=== PATIENT | male | born 1950 | race Caucasian/White ===

== ENCOUNTER 2019-10-26 12:27 | Inpatient (IN) | payer BC, MEDICARE ==
[2019-10-26] MEDS ORDERED: Iopamidol-370 76% 500 ML 1 ML ONE (12:52)
--- NOTE | 2019-10-26 13:56 | PDOC.FPRHP ---
- History of Present Illness Chief Complaint: abd pain History of Present Illness: Pt is a 69yo M with no PMH presenting as a direct admission from [facility] for cc of abd pain in RUQ and constipation, with findings of metastatic cancer on imaging. This has been present x2 wks. He has tried dulcolax with only mild improvement. Pain continued and worsens with eating and movement, improves with being still. Pain described as sharp/stabbing, varying from 3/10 to 10/10 at its worst. Denies diarrhea, nausea, vomiting, hematochezia, and melena. Denies colonoscopy in the past. He has no PCP. He has never had a colonoscopy. ED Course: He was seen at [facility]. They did an US that showed spots on his liver. [facility] in the [facility] colon, mets in the liver, and LAD in the floyd hepatis. He has an AST: 57, ALT: 79, Alk Phos: 148, GGT: 274. - Allergies/Adverse Reactions Allergies Allergy/AdvReac Type Severity Reaction Status Date / Time No Known Allergies Allergy Verified 06/12/14 13:01 - Home Medications Medication Instructions Recorded Confirmed Type No Known 10/26/19 10/26/19 History - History PMHx: Asthma PSHx: retinal detachment repair R eye, laser surgery L eye FHx: Father-colon cancer (dx at 88yo), Mother passed from Lymphoma at age 86yo Social: denies tobacco use, reports occasional alcohol use- 3-4 beers every 2-3 days, denies drug use. Lives at home with of 13yr. PCP: none - Review of Systems General: reports: fatigue. denies: fever/chills, weight/appetite/sleep changes Eyes: denies: vision changes ENT: denies: nasal congestion, rhinorrhea Respiratory: denies: cough, congestion, shortness of breath Cardiovascular: denies: chest pain, edema Gastrointestinal: reports: constipation, abdominal pain. denies: nausea, vomiting, diarrhea, GI bleeding Genitourinary: denies: polyuria Skin: denies: rashes, lesions Musculoskeletal: denies: pain, tenderness Neurological: denies: numbness, weakness Psychological: denies: depression - Vital signs T 97.8F, P 58, R18, O296% on RA, BP 167/94 Wt: 102.965 kg - Physical Exam Constitutional: NAD, awake, alert and oriented HEENT: normocephalic and atraumatic, PERRLA, conjunctiva clear, normal nasal mucosa, MMM, oropharynx clear, good dention Neck: supple, no LAD Heart: RRR, normal S1/S2, no murmurs/rubs/gallops, pulses present, no edema Lungs: CTAB, no respiratory distress, good air movement, no rales/rhonchi, no wheezing, no retractions Abdomen: soft, bowel sounds present -Abdomen: Tender to palpitation on the right abdomen. Musculoskeletal: normal structure, normal tone Neurological: CN II-XII intact, normal sensation Skin: no rash/lesions, good turgor Heme/Lymphatic: no unusual bruising or bleeding, no purpura, no petechia Psychiatric: normal mood and affect, intact recent and remote memory FMR H&P: A/P - Problem List (1) Colorectal cancer, stage IV Current Visit: Yes Status: Acute Code(s): C19 - MALIGNANT NEOPLASM OF RECTOSIGMOID JUNCTION (2) Metastasis Current Visit: Yes Status: Acute Code(s): C79.9 - SECONDARY MALIGNANT NEOPLASM OF UNSPECIFIED SITE (3) Elevated alkaline phosphatase level Current Visit: Yes Status: Acute Code(s): R74.8 - ABNORMAL LEVELS OF OTHER SERUM ENZYMES (4) Elevated serum GGT level Current Visit: Yes Status: Acute Code(s): R74.8 - ABNORMAL LEVELS OF OTHER SERUM ENZYMES (5) Abdominal pain Current Visit: Yes Status: Acute Code(s): R10.9 - UNSPECIFIED ABDOMINAL PAIN (6) Asthma Current Visit: Yes Status: Acute Code(s): J45.909 - UNSPECIFIED ASTHMA, UNCOMPLICATED - Plan Pt is a 69yo M with no PMH presenting as a direct admission from [facility] for cc of abd pain in RUQ and constipation, with findings of metastatic cancer on imaging. 1. CRC, Stage IV Abd pain for 2 wks * No colonoscopy * FMH colon cancer in 80s in father * US: MUltiple hypoechoic hepatic lesions, gallbladder polyp, Fatty infection of the liver and hepatomegaly * CT Abd: Moderate wall thickening of the ascending colon, pericolonic mesenteric fat infiltation of cecum, LAD of the floyd hepatis, 3.7 x 3.8 ascending colon mass. * CT Chest ordered * GI consulted, appreciate recs. * Golytely this evening * Colonoscopy tomorrow 2. Transaminitis/Elevated Alk Phos & GGT ALT: 79, AST: 57, Alk Phos: 148, GGT: 274 * Daily CMPs 3. Abdominal pain RUQ with radiation to RLQ * Improved with liquid diet * Will keep him on a liquid diet Code Status: Full Diet: Clear Liquid > NPO @ midnight Activity: Ad Ching IVF: SL DVT PPx: Lovenox PCP: CC Dispo:Admit to medical inpt for workup of ascending colon mass with liver mets. LOS > 48H. FMR H&P: Upper Level - Plan Date/Time: 10/26/19 1356 I, Maria Luz Combs DO, have evaluated this patient and agree with findings/plan as outlined by internet marketing assistant resident. Pertinent changes/additions are listed here. Pt is a 69 yo F with no pertinent PMH presenting from [facility] for concern for new metastatic disease on imaging. He presented there with c/o abd pain and constipation x2wks worsened by eating and moving, worsening with limited ability to tolerate meals other than broths. Denies fever, hematochezia , melena, n/v/d, weight loss. No prior colonoscopy. +FHx of lymphoma and colon cancer in parents. VS: T 97.8F, P 58, R18, O296% on RA, BP 167/94 PE: Gen: NAD HEENT: Moist MM, no LAD Heart: RRR, no murmurs or extra sounds. Distal pulses 2+ Lungs: CTAB, no wheezing. No increased work of breathing Abd: soft, tenderness in RUQ, negative murphys sign, BS+, no masses or hernias Ext: no cyanosis or edema Skin: no rashes Psych: AOx3 Pertinent Labs/Imaging: Alk phos: 148 ALT 79 AST 57 Tbili 1.1 GGT 274 RUQ US: Multiple hypoechoic hepatic lesions Ctabd/pelvis: Likely ascending colon mass with diffuse abdominal adenopathy and pora hepatis [id number] adenopathy and likely liver metastatic disease A/P: New Suspected Metastatic Colorectal Cancer: -consulted GI who recommends CT chest to further evaluate and morning colonoscopy. -clear liquid diet. -prn senna and dulcolax -plan to consult onc once tissue diagnosis is established Dispo: stable, admit inpatient, LOS likely> 48. DVT PPx: Lovenox GI PPx: none Addendum - Attending - Attending Attestation Date/Time: 10/26/19 8223 I personally evaluated the patient and discussed the management with Dr. Spicer/ Lauryn. I agree with the History, Examination, Assessment and Plan documented above with any addition or exceptions noted below. Patient here with 2 weeks of abdominal pain with associated constipation. He otherwise denies complaints. [facility] scan showed ascending colon thickening and fat stranding with findings concerning for liver metastatic disease. He has never had a colonoscopy, and reports his father had colorectal cancer age >80. Patient will be admitted for further evaluation. GI consult with plans for colonoscopy tomorrow and possible surgical consult after that time. Will need Onc after tissue diagnosis. Will check CT chest for staging.
[2019-10-26] MEDS ORDERED: Prevnar 13-Val Conj/PF 0.5 ML SYRINGE IM ONE (14:15)
[2019-10-26 14:39] VITALS: BMI 30.7
[2019-10-26] MEDS ORDERED: Acetaminophen 325 MG TAB PO PRN (15:18)
[2019-10-26] MEDS ORDERED: Senokot S 8.6-50 MG TAB PO PRN (15:18)
[2019-10-26] MEDS ORDERED: Ondansetron ODT 4 MG TAB PO PRN (15:18)
[2019-10-26] MEDS ORDERED: Bisacodyl 5 MG TAB PO PRN (15:18)
--- NOTE | 2019-10-26 18:19 | CT ---
CT OF THE CHEST WITH IV CONTRAST INDICATION: History of metastatic colon cancer COMPARISON: CT the abdomen and pelvis performed at [facility] in [place], [place] on October 26, 2019. FINDINGS: CHEST: Lungs: There is a 4.5 mm triangular-shaped, subpleural nodule in the lateral right middle lobe on negra ge 30 of series 3. An additional small triangular subpleural 2 mm nodule is seen within the right middle lobe on image 40 of series 3. No additional pulmonary nodule is identified. There is subsegmen neeraj volume loss involving both lower lobes. Pleural space: No effusion. Mediastinum: No pathologically enlarged lymph nodes are evident. Upper abdomen:Hepatic metastatic lesions with mild fatty infiltration as seen on the comparison CT ex amination. The largest lesion is in segment 6 measuring 4 cm. There is additional 4.3 cm lesion within the peripheral right hepatic lobe tip. There is extensive adenopathy within the portal caval a nd periportal region. Osseous structures: No acute osseous abnormality. No destructive osteolytic or osteoblastic lesion i s identified. There is scattered degenerative and osteoarthritic changes. Soft tissues:There is a partially visualized 2.1 cm subcutaneous hypodense lesion on image 23 of seri es 2 overlying the right latissimus dorsi. IMPRESSION: 1. Small peripheral subpleural triangular opacities within the lateral right middle lobe most suspici ous for small intrapulmonary lymph nodes. Metastatic disease is felt to be less likely. As a conservative measure a follow-up CT of the thorax in 4-6 weeks is recommended to document stability. 2. Hepatic metastatic disease with extensive upper abdominal lymphadenopathy. 3. Subcutaneous hypodense cystic lesion involving the skin surface of the right upper torso, adjacent to the right latissimus dorsi. This may reflect a prominent sebaceous cyst. Recommend correlation with clinical exam. Malignant skin lesion cannot be entirely excluded.
[2019-10-26] MEDS ORDERED: GoLYTELY 4,000 ml Bottle PO SCH (19:00)
--- NOTE | 2019-10-27 06:05 | PDOC.FM ---
- Subjective Subjective: He says he is still having a little pain with movement but he feels that it is tolerable and he will ask for pain meds when he needs them. He had chicken broth for dinner and tolerated it well. He says he took the Golytle and he has had a little brown stool and took more this morning to finish cleaning out in anticipation for the scope today. - Objective MAR Reviewed: Yes Vital Signs & Weight: Vital Signs (12 hours) Temp Pulse Resp BP BP Pulse Ox 10/27/19 04:00 98.2 F 63 18 134/76 94 L 10/27/19 00:00 97.9 F 57 L 18 137/77 96 10/26/19 20:28 98.2 F 60 18 146/79 H 96 10/26/19 20:00 96 Weight Weight 102.965 kg Result Diagrams: 10/27/19 06:30 10/27/19 06:30 Phys Exam - Physical Examination Constitutional: NAD HEENT: PERRLA, moist MMs, sclera anicteric Neck: no nodes, supple Respiratory: no wheezing, no rales, no rhonchi, clear to auscultation bilateral Cardiovascular: RRR, no significant murmur, no rub Gastrointestinal: soft, positive bowel sounds Tender to palptiation over the right side Musculoskeletal: no edema, pulses present Neurological: moves all 4 limbs Lymphatic: no nodes Psychiatric: normal affect Skin: no rash, normal turgor Dx/Plan (1) Colorectal cancer, stage IV Code(s): C19 - MALIGNANT NEOPLASM OF RECTOSIGMOID JUNCTION Status: Acute (2) Metastasis Code(s): C79.9 - SECONDARY MALIGNANT NEOPLASM OF UNSPECIFIED SITE Status: Acute (3) Elevated alkaline phosphatase level Code(s): R74.8 - ABNORMAL LEVELS OF OTHER SERUM ENZYMES Status: Acute (4) Elevated serum GGT level Code(s): R74.8 - ABNORMAL LEVELS OF OTHER SERUM ENZYMES Status: Acute (5) Abdominal pain Code(s): R10.9 - UNSPECIFIED ABDOMINAL PAIN Status: Acute (6) Asthma Code(s): J45.909 - UNSPECIFIED ASTHMA, UNCOMPLICATED Status: Acute - Plan Plan: Pt is a 69yo M with no PMH presenting as a direct admission from [facility] for cc of abd pain in RUQ and constipation, with findings of metastatic cancer on imaging. 1. CRC, Stage IV Abd pain for 2 wks * No colonoscopy * FMH colon cancer in 80s in father * US: Multiple hypoechoic hepatic lesions, gallbladder polyp, Fatty infection of the liver and hepatomegaly * CT Abd: Moderate wall thickening of the ascending colon, pericolonic mesenteric fat infiltation of cecum, LAD of the floyd hepatis, 3.7 x 3.8 ascending colon mass. * CT Chest: Right middle lobe lateral LAD, hepatic mets with LAD, subQ cyst with R latissmus dorsi- sebaceous vs met * Recommend repeat in 4-6 wks * GI consulted, appreciate recs. * Golytely- last night * Colonoscopy today * CEA: 5.64- Elevated 2. Transaminitis/Elevated Alk Phos & GGT ALT: 79 > 74, AST: 57 > 40, Alk Phos: 148 > 187, GGT: 274 * Daily CMPs 3. Abdominal pain RUQ with radiation to RLQ * Improved with liquid diet * Will keep him on a liquid diet Code Status: Full Diet: Clear Liquid > NPO @ midnight Activity: Ad Ching IVF: SL DVT PPx: Lovenox PCP: CC Dispo:Medical inpt for workup of mass with colon mets, LOS > 48H. Will have scope today. Will await GI recs. Addendum - Attending - Attending Attestation Date/Time: 10/27/19 1005 I personally evaluated the patient and discussed the management with [Dannielle] I agree with the History, Examination, Assessment and Plan documented above with any addition or exceptions noted below.
[2019-10-27 07:15] LABS: #Eosinphils 0.8 thou/uL (0.0-0.7); #Lymphocytes 1.3 thou/uL (1.20-3.40); #Monocytes 0.7 thou/uL (0.11-0.59); #Neutrophils 5.7 thou/uL (1.40-6.50); %Basophils 0.2 % (0.0-1.0); %Eosinophils 9.9 % (0.0-10.0); %Lymphocytes 15.3 % (21.0-51.0); %Monocytes 7.9 % (0.0-10.0); %Neutrophils 66.7 % (42.0-75.0); Hemoglobin 15.6 g/dL (14.0-18.0); Mean Corpuscular HGB CONC 33.3 g/dL (32.0-36.0); Mean Corpuscular Hemoglobin 30.9 pg (27.0-31.0); Mean Corpuscular Volume 92.8 fL (78.0-98.0); Mean Platelet Volume 7.2 fL (7.4-10.4); Platelet Count 264 thou/uL (130-400); RBC Distribution Width 12.1 % (11.5-14.5); Red Blood Cell (RBC) Count 5.03 mill/uL (4.70-6.10); White Blood Cell (WBC) Count 8.5 thou/uL (4.8-10.8)
[2019-10-27 07:33] LABS: ALT (SGPT) 74 U/L (8-55); AST (SGOT) 40 U/L (5-34); Albumin 4.4 g/dL (3.4-4.8); Alkaline Phosphatase 187 U/L (40-110); Anion Gap 13 mmol/L (10-20); BUN (Urea Nitrogen) 11 mg/dL (8.4-25.7); Bilirubin, Total 1.5 mg/dL (0.2-1.2); Calc. Creatinine Clearance 112 mL/min (70-130); Calcium 9.6 mg/dL (7.8-10.44); Carbon Dioxide 27 mmol/L (23-31); Chloride 101 mmol/L (98-107); Estimated GFR-MDRD 83; Globulin 3.3 g/dL (2.4-3.5); Glucose 94 mg/dL (80-115); Potassium 4.1 mmol/L (3.5-5.1); Protein, Total 7.7 g/dL (5.8-8.1); Sodium 137 mmol/L (136-145)
--- NOTE | 2019-10-27 09:21 | CON ---
DATE OF CONSULTATION: 10/27/2019 REASON FOR CONSULTATION: Abnormal GI imaging showing an ascending colon mass with metastatic disease to liver, right upper quadrant abdominal pain. CONSULTING PHYSICIAN: Dr. Shimon Spicer. HISTORY OF PRESENT ILLNESS: The patient is a 69-year-old male with past medical history of asthma, presenting with complaints of right upper quadrant pain and constipation. He states that he was in his usual state of health until approximately 2 weeks ago when he began having a change in his bowel habits characterized as constipation, having approximately 1 bowel movement every 3 to 4 days. When he did actually have a bowel movement, it was characterized as more solid to semi-solid with no difficulty with defecation, but could not initiate the bowel movement itself without the help of [id number] stool softeners. He stated that as an outpatient he was using Dulcolax in order to facilitate having a bowel movement, which was then resulted in a bowel movement and would not recur unless he was using more stool softeners. During this time period, he denies any appearance of black stools or blood in his stool. However, he does endorse increased right upper quadrant abdominal pain that is characterized as a sharp/stabbing type sensation, nonradiating, intermittent (would occur primarily with physical activity) and reached a severity of 8/10. This pain would be worse with increased physical activity, lying on his left side and not having a bowel movement, better with lying down flat and not moving and slightly better with actually passing a bowel movement. Associated symptoms included increased weakness and fatigue during this time period, but otherwise he denies any nausea, vomiting, fevers, chills, hematemesis, melena, hematochezia, dysphagia, odynophagia, or weight loss. Of note, the patient's father was diagnosed with colon cancer in his 80s, but denies any other family members with colonic malignancies or polyps. REVIEW OF SYSTEMS: A 10-category review of systems was obtained with all responses negative except for the pertinent positives as listed in HPI. PAST MEDICAL HISTORY: Asthma. PAST SURGICAL HISTORY: 1. Laser surgery on his left eye. 2. Retinal detachment repair on his right eye. FAMILY HISTORY: Colon cancer with his father diagnosed at the age of 88. Otherwise, no other GI malignancies. SOCIAL HISTORY: He drinks approximately 3 to 4 beers every 2 to 3 days, but denies any tobacco or illicit drug use. OUTPATIENT MEDICATIONS: None. ALLERGIES: NO KNOWN DRUG ALLERGIES. PHYSICAL EXAMINATION: VITAL SIGNS: Temperature 98, pulse 70, blood pressure 143/82, respiratory rate 18, saturating 95% on room air. GENERAL: The patient was lying in bed, in no acute distress. Alert and oriented x4. HEENT: Normocephalic, atraumatic. Neck is supple. No JVD or scleral icterus noted. CARDIOVASCULAR: Regular rate and rhythm with no discernible murmurs, gallops, or rubs. RESPIRATORY: Clear to auscultation bilaterally with no discernible wheezes or rales. ABDOMEN: Normoactive bowel sounds. Soft, nontender, nondistended. EXTREMITIES: No cyanosis, clubbing, or edema. LABORATORY DATA: CBC with a white blood cell count of 8.5, hemoglobin 15.6, hematocrit 46.7, platelets 264. Chemistry with a sodium of 137, potassium 4.1, chloride 101, CO2 of 27, BUN 11, creatinine 0.91, glucose 94. AST 40, ALT 74, alkaline phosphatase 187, total bilirubin 1.5, albumin 4.4. CEA 5.64 (elevated). IMAGING DATA: The patient has had both right upper quadrant ultrasound and CT of the abdomen performed, but results are not available in the chart. However, per the H and P, the ultrasound showed multiple hypoechoic hepatic lesions throughout the liver as well as the gallbladder polyp as well as fatty infiltration of the liver consistent with hepatic steatosis. The CT scan showed moderate wall thickening of the ascending colon as well as a 3.7 x 3.8 cm ascending colon mass. Pericolonic mesenteric fat infiltration was seen down to the cecum with significant lymphadenopathy in the surrounding region. CT of the chest was obtained on October 26, 2019, which showed a 4.5 mm subpleural nodule in the right middle lobe as well as a 2 mm nodule in the right middle lobe, but no associated mediastinal lymphadenopathy on lower cuts of the CT scan, multiple hepatic lesions were seen within the liver, the largest measuring approximately 4.3 cm in size with extensive lymphadenopathy. ASSESSMENT AND PLAN: The patient is a 69-year-old male with past medical history of asthma and a family history of colon cancer, presenting with right upper quadrant abdominal pain, change in bowel habits, and abnormal GI imaging consistent with a colonic malignancy with metastatic disease to the liver. Abnormal gastrointestinal imaging/possible colon cancer. The patient is presenting with a fairly acute onset of increased right upper quadrant abdominal pain and change in his bowel habits consisting primarily of constipation over the last 2 weeks. With the increasing pain, it prompted him to seek healthcare assistance, and during the workup, was noted to have wall thickening of the ascending colon as well as an approximate 4 cm ascending colon mass with multiple hepatic lesions concerning for colonic adenocarcinoma with metastatic disease to the liver. He does have some mild elevated LFTs at this time in addition to an elevated carcinoembryonic antigen, again consistent with a colonic malignancy and metastatic disease to the liver. RECOMMENDATIONS: 1. Would place the patient n.p.o. at this time in preparation for colonoscopy later today for further evaluation of this colonic mass. 2. We will plan for colonoscopy later on today for probable biopsies of mass and to determine extent of disease. 3. Pain control per primary team. 4. Further recommendations to follow colonoscopy. We will continue to follow. Please call with any questions. Job ID: [id number]
[2019-10-27] MEDS: Enoxaparin Sodium 40 MG/0.4 ML SYRINGE SC SCH (09:35)
--- NOTE | 2019-10-27 11:22 | OP ---
DATE OF PROCEDURE: 10/27/2019 PROCEDURES PERFORMED: Colonoscopy with biopsy, polypectomy and submucosal injection. INDICATION FOR PROCEDURE: Change in bowel habits, abnormal GI imaging showing a large ascending colon mass with metastatic disease to the liver. DESCRIPTION OF PROCEDURE: After the risks and benefits of the procedure were explained to the patient, including risks of bleeding, infection, perforation, reactions to anesthesia, aspiration and/or pain, informed consent was obtained. The patient was then taken to the endoscopy suite, where he was maneuvered into the left lateral decubitus position, followed by introduction of deep sedation via propofol and anesthesia support. Once adequate sedation was achieved, the standard colonoscope was introduced into the rectum. Next, once adequate sedation was achieved, a digital rectal examination was performed followed by introduction of the standard colonoscope into the rectum and advanced to the cecum with some difficulty secondary to a large ascending colon mass. The quality of the prep proximal to the ascending mass was poor with a large amount of retained solid and semi-liquid stool in the cecum and proximal ascending colon limiting visualization of the colonic mucosa; however, visualization of the colonic mucosa distal to the mass was excellent with adequate visualization achieved. The patient tolerated the procedure well with no immediate perioperative complications. Upon conclusion of the procedure, all equipment was removed from the patient and he was transferred to PACU in satisfactory condition. FINDINGS: Digital rectal exam: Small external hemorrhoids were seen on external examination. Colon findings: The colonoscope was advanced to the cecum with a mild amount of difficulty secondary to a large ascending colon mass in the mid ascending colon, that was traversed with some difficulty. The quality of the prep proximal to the ascending colon mass was poor with a large amount of retained solid and semi-liquid stool, that interfered with visualization despite aggressive irrigation and suctioning; however, the prep distal to the ascending colon mass was excellent with good views of the mucosa achieved. Of the mucosa seen, normal-appearing mucosa was seen in the cecum as well as at the appendiceal orifice and ileocecal valve. A large ulcerated, fungating mass was seen in the mid ascending colon extending approximately 7 to 8 cm in length and occupying approximately 85% to 90% of the colonic lumen. Multiple biopsies were taken from this mass and placed in a specimen jar for further evaluation. Tattoo placement was then performed on both the proximal and distal ends of the lesion for future reference. Normal-appearing mucosa was then seen in the proximal transverse colon; however, a 2-mm polyp was seen in the mid transverse colon and completely removed with biopsy forceps. It was retrieved and placed in a specimen jar for further evaluation. Two additional polyps, measuring 4 to 6 mm in size, were seen in the descending colon and completely removed with snare cautery polypectomy. They were both retrieved and placed in a specimen jar for further evaluation. Normal-appearing mucosa was then seen within the sigmoid colon. A 2- to 3-mm polyp was then seen in the rectum just proximal to the dentate line and completely removed with biopsy forceps. It was retrieved and placed in a specimen jar for further evaluation. Lastly, small nonbleeding internal hemorrhoids were seen on rectal retroflexion. IMPRESSION: 1. A large mid ascending colonic mass measuring 7 to 8 cm in length and occupying 85% to 90% of the colonic lumen was encountered, now status post biopsies and tattoo placement. 2. A 2- to 3-mm transverse colon polyp, completely removed with biopsy forceps. 3. Two descending colon polyps measuring 4 to 6 mm in size, status post snare cautery polypectomy. 4. A 2- to 3-mm rectal polyp, status post biopsy forceps. 5. Internal and external hemorrhoids. RECOMMENDATIONS: 1. No further imaging is needed given that all the staging imaging has been performed thus far. 2. We will follow up on the biopsy results with further management indicated by the pathology report. Given the higher likelihood of colonic malignancy, Surgical Oncology and the Oncology Services should be consulted, especially given in light of metastatic disease. 3. We would consult General Surgery Service for evaluation of the patient and possible surgical resection given the significantly limited caliber of the colonic lumen. 4. We will continue to trend the patient's H and H and transfuse as necessary to maintain an H and H of 7/21. 5. Monitor clinically for signs of active GI bleeding. 6. Pain control per primary team. 7. We would place the patient on a clear liquid diet until evaluated by General Surgery Service. 8. I would recommend a repeat colonoscopy in 1 year after surgical resection of the ascending colon mass. Given that all the staging imaging and tumor markers have been obtained with pathology pending at this time, there is no further role for the GI Service. We will sign off at this time. Please call with any additional questions. Job ID: [id number]
[2019-10-27] MEDS ORDERED: PROPOFOL 200 MG/20 ML VIAL ONE (15:36)
[2019-10-28 05:45] LABS: ALT (SGPT) 50 U/L (8-55); AST (SGOT) 26 U/L (5-34); Albumin 3.9 g/dL (3.4-4.8); Alkaline Phosphatase 153 U/L (40-110); Anion Gap 11 mmol/L (10-20); BUN (Urea Nitrogen) 12 mg/dL (8.4-25.7); Bilirubin, Total 1.4 mg/dL (0.2-1.2); Calc. Creatinine Clearance 119 mL/min (70-130); Calcium 8.7 mg/dL (7.8-10.44); Carbon Dioxide 25 mmol/L (23-31); Chloride 107 mmol/L (98-107); Estimated GFR-MDRD 89; Globulin 2.8 g/dL (2.4-3.5); Glucose 96 mg/dL (80-115); Potassium 4.3 mmol/L (3.5-5.1); Protein, Total 6.7 g/dL (5.8-8.1); Sodium 139 mmol/L (136-145)
--- NOTE | 2019-10-28 06:46 | PDOC.FM ---
- Subjective Subjective: He says he had some more abdominal pain this morning that is a 3-4/10. He has not had a BM but he has been on clear broth and had his colonoscopy yesterday. - Objective MAR Reviewed: Yes Vital Signs & Weight: Vital Signs (12 hours) Temp Pulse Resp BP BP Pulse Ox 10/28/19 04:00 98.3 F 60 18 120/68 94 L 10/27/19 23:46 98.4 F 60 18 118/64 97 10/27/19 20:00 98.3 F 61 18 126/71 96 Weight Admit Weight 102.965 kg Weight 102.965 kg I&O: 10/26/19 10/27/19 10/28/19 06:59 06:59 06:59 Intake Total 730 Balance 730 Result Diagrams: 10/27/19 06:30 10/28/19 05:13 Phys Exam - Physical Examination Constitutional: NAD HEENT: moist MMs, sclera anicteric Neck: no nodes, supple Respiratory: no wheezing, no rales, no rhonchi, clear to auscultation bilateral Cardiovascular: RRR, no significant murmur, no rub Gastrointestinal: soft, non-tender, positive bowel sounds Musculoskeletal: no edema, pulses present Neurological: moves all 4 limbs Psychiatric: normal affect Skin: no rash, normal turgor Dx/Plan (1) Colorectal cancer, stage IV Code(s): C19 - MALIGNANT NEOPLASM OF RECTOSIGMOID JUNCTION Status: Acute (2) Metastasis Code(s): C79.9 - SECONDARY MALIGNANT NEOPLASM OF UNSPECIFIED SITE Status: Acute (3) Elevated alkaline phosphatase level Code(s): R74.8 - ABNORMAL LEVELS OF OTHER SERUM ENZYMES Status: Acute (4) Elevated serum GGT level Code(s): R74.8 - ABNORMAL LEVELS OF OTHER SERUM ENZYMES Status: Acute (5) Abdominal pain Code(s): R10.9 - UNSPECIFIED ABDOMINAL PAIN Status: Acute (6) Asthma Code(s): J45.909 - UNSPECIFIED ASTHMA, UNCOMPLICATED Status: Acute - Plan Plan: Pt is a 69yo M with no PMH presenting as a direct admission from [facility] for cc of abd pain in RUQ and constipation, with findings of metastatic cancer on imaging. 1. CRC, Stage IV Abd pain for 2 wks * No colonoscopy * FM[facility] colon cancer in 80s in father * US: Multiple hypoechoic hepatic lesions, gallbladder polyp, Fatty infection of the liver and hepatomegaly * CT Abd: Moderate wall thickening of the ascending colon, pericolonic mesenteric fat infiltation of cecum, LAD of the floyd hepatis, 3.7 x 3.8 ascending colon mass. * CT Chest: Right middle lobe lateral LAD, hepatic mets with LAD, subQ cyst with R latissmus dorsi- sebaceous vs met * Recommend repeat in 4-6 wks * GI consulted, appreciate recs. * Repeat Colonoscopy in 1 year * Colonoscopy 10/26: 7-8 cm mass in Ascending colon and 4 polyps removed * CEA: 5.64- Elevated * General Surgery consulted, appreciate recs. * Will do hemicolectomy on 10/28 * Will consult Onc once we get path 2. Transaminitis/Elevated Alk Phos & GGT- Improving ALT: 79 > 50, AST: 57 > 26, Alk Phos: 148 > 153, GGT: 274 * Daily CMPs 3. Abdominal pain RUQ with radiation to RLQ * Improved with liquid diet * Will keep him on a liquid diet Code Status: Full Diet: Clear Liquid Activity: Ad Ching IVF: SL DVT PPx: Lovenox PCP: CC Dispo:Medical inpt for workup of mass with colon mets, LOS > 48H. Will await surgery on Tuesday and consult Onc once we have path. Addendum - Attending - Attending Attestation Date/Time: 10/28/19 0959 I personally evaluated the patient and discussed the management with [Dannielle] I agree with the History, Examination, Assessment and Plan documented above with any addition or exceptions noted below.
[2019-10-28] MEDS: Enoxaparin Sodium 40 MG/0.4 ML SYRINGE SC SCH (08:30)
--- NOTE | 2019-10-28 11:18 | CON ---
DATE OF CONSULTATION: 10/28/2019 CHIEF COMPLAINT: Ascending colon mass. HISTORY OF PRESENT ILLNESS: This is a 69-year-old male who underwent a screening colonoscopy yesterday which showed ascending colon likely cancer. Biopsies are pending at this time. I was consulted for definitive resection. The patient was found to have significant intraabdominal lymphadenopathy as well as metastatic liver disease. He states that when he came in, he had been constipated for a few days. However, he has no history of bloating, nausea, vomiting, or constipation previously. He had some right upper abdominal pain that he states was felt like it was behind his rib. No blood in his stool. MEDICAL HISTORY: Only includes asthma. PAST SURGICAL HISTORY: Denies. MEDICATIONS: Taken daily include none. ALLERGIES: NO KNOWN DRUG ALLERGIES. SOCIAL HISTORY: No smoking, alcohol or drugs. REVIEW OF SYSTEMS: Ten-system review of systems is otherwise negative unless described above. FAMILY HISTORY: There is family history of colon cancer in the father at 88. No anesthetic related complications. PHYSICAL EXAMINATION: VITAL SIGNS: Blood pressure is 125/72, pulse 65, respirations 18. He is afebrile. HEENT: Sclerae anicteric. Oropharynx clear. NECK: No lymphadenopathy. CHEST: Clear. HEART: Regular rate. ABDOMEN: Soft, nontender, nondistended. EXTREMITIES: No ischemia or edema to extremities. LABORATORY DATA: White blood cell count is 8, hemoglobin is 15, bilirubin is 1.4, alkaline phosphatase 153. CEA is 5.64. CT of the chest actually reveals metastatic liver disease, intraabdominal lymphadenopathy. ASSESSMENT: Ascending colon cancer, metastatic to liver. PLAN: He is not significantly symptomatic. I would consider chemotherapy first. Will await final recommendations from Medical Oncology, but I suspect these symptoms in the right upper quadrant more are related to liver metastasis than the actual primary tumor itself. We will follow with you. Await recommendations from Oncology and await final pathology. Job ID: [id number]
[2019-10-29 06:12] LABS: ALT (SGPT) 45 U/L (8-55); AST (SGOT) 26 U/L (5-34); Albumin 3.9 g/dL (3.4-4.8); Alkaline Phosphatase 158 U/L (40-110); Anion Gap 11 mmol/L (10-20); BUN (Urea Nitrogen) 12 mg/dL (8.4-25.7); Bilirubin, Total 1.6 mg/dL (0.2-1.2); Calc. Creatinine Clearance 118 mL/min (70-130); Calcium 8.9 mg/dL (7.8-10.44); Carbon Dioxide 25 mmol/L (23-31); Chloride 104 mmol/L (98-107); Estimated GFR-MDRD 88; Globulin 2.8 g/dL (2.4-3.5); Glucose 93 mg/dL (80-115); Potassium 4.3 mmol/L (3.5-5.1); Protein, Total 6.7 g/dL (5.8-8.1); Sodium 136 mmol/L (136-145)
--- NOTE | 2019-10-29 07:27 | PDOC.FM ---
- Subjective Subjective: Patient continues to complaint of RUQ pain this morning, about 3 out of 10. His is present in the room, she is also concerned about a red area on the patient's neck which appeared yesterday after he shaved. Patient slept okay overnight, but says his abdominal pain kept waking him up. Appetite has been okay. - Objective MAR Reviewed: Yes Vital Signs & Weight: Vital Signs (12 hours) Temp Pulse Resp BP Pulse Ox 10/28/19 19:29 98.2 F 63 18 126/70 96 Weight Admit Weight 102.965 kg Weight 102.965 kg I&O: 10/28/19 10/29/19 10/30/19 06:59 06:59 06:59 Intake Total 730 2059 Balance 730 2059 Result Diagrams: 10/27/19 06:30 10/29/19 05:20 Radiology Reviewed by me: Yes Phys Exam - Physical Examination Constitutional: NAD HEENT: moist MMs, sclera anicteric Neck: no JVD, supple, full ROM small red patch on right neck Respiratory: no wheezing, no rhonchi, clear to auscultation bilateral Cardiovascular: RRR, no significant murmur Gastrointestinal: soft, positive bowel sounds TTP in RUQ Musculoskeletal: no edema, pulses present Neurological: non-focal, normal sensation, moves all 4 limbs Psychiatric: normal affect, A&O x 3 Skin: normal turgor Dx/Plan (1) Asthma Code(s): J45.909 - UNSPECIFIED ASTHMA, UNCOMPLICATED Status: Resolved Qualifiers: Asthma severity: mild Asthma persistence: unspecified (2) Colorectal cancer, stage IV Code(s): C19 - MALIGNANT NEOPLASM OF RECTOSIGMOID JUNCTION Status: Acute (3) Elevated alkaline phosphatase level Code(s): R74.8 - ABNORMAL LEVELS OF OTHER SERUM ENZYMES Status: Acute (4) Elevated serum GGT level Code(s): R74.8 - ABNORMAL LEVELS OF OTHER SERUM ENZYMES Status: Acute (5) Metastasis Code(s): C79.9 - SECONDARY MALIGNANT NEOPLASM OF UNSPECIFIED SITE Status: Acute Qualifiers: Area of secondary neoplastic involvement: digestive structure Digestive structure secondary neoplasm location: metastatic to liver Qualified Code(s): C78.7 - Secondary malignant neoplasm of liver and intrahepatic bile duct - Plan Plan: Pt is a 69yo M with no PMH presenting as a direct admission from [facility] for cc of abd pain in RUQ and constipation, with findings of metastatic cancer on imaging. 1. CRC, Stage IV Abd pain for 2 wks * No colonoscopy in past * FM[facility] colon cancer in 80s in father * US: Multiple hypoechoic hepatic lesions, gallbladder polyp, Fatty infection of the liver and hepatomegaly * CT Abd: Moderate wall thickening of the ascending colon, pericolonic mesenteric fat infiltation of cecum, LAD of the floyd hepatis, 3.7 x 3.8 ascending colon mass. * CT Chest: Right middle lobe lateral LAD, hepatic mets with LAD, subQ cyst with R latissmus dorsi- sebaceous vs met * Recommend repeat in 4-6 wks * GI consulted, appreciate recs. * Repeat Colonoscopy in 1 year after resection performed * Colonoscopy 10/26: 7-8 cm mass in Ascending colon and 4 polyps removed * CEA: 5.64- Elevated * General Surgery consulted--Dr. Robison, appreciate recs. * will consult Oncology, consider chemo initially prior to surgery given mild symptoms at this time per Dr. Robison * Oncology consulted--Dr. Galindo, appreciate recs 2. Transaminitis/Elevated Alk Phos & GGT- Improving ALT: 79 > 50, AST: 57 > 26, Alk Phos: 148 > 153, GGT: 274 * Daily CMPs 3. Abdominal pain RUQ with radiation to RLQ * Improved with liquid diet Code Status: Full Diet: NPO pending Surgical eval Activity: Ad Ching IVF: SL DVT PPx: Lovenox PCP: CC Dispo: Stable, admitted to Medical inpt for further workup of mass with colon & liver mets. Await pathology results taken during colonoscopy. Surgery and Oncology both consulted, appreciate recommendations. Addendum - Attending - Attending Attestation Date/Time: 10/29/19 4508 I personally evaluated the patient and discussed the management with Dr. Lopez. I agree with the History, Examination, Assessment and Plan documented above with any addition or exceptions noted below.
[2019-10-29] MEDS: Enoxaparin Sodium 40 MG/0.4 ML SYRINGE SC SCH (07:57)
--- NOTE | 2019-10-29 08:13 | PRG ---
DATE OF SERVICE: SUBJECTIVE: Mr. Price has no complaints today, tolerated a clear liquid diet without difficulty. OBJECTIVE: VITAL SIGNS: He is afebrile. Vital signs are stable. His exam is unchanged. ASSESSMENT: Metastatic colon cancer. Pathology on biopsy during colonoscopy pending. PLAN: He needs to be seen by Oncology today. I would plan on placing a MediPort tomorrow. No plans for surgery. He will need chemotherapy first. Job ID: [id number]
--- NOTE | 2019-10-29 18:12 | CON ---
DATE OF CONSULTATION: REASON FOR CONSULTATION: Metastatic colon cancer. HISTORY OF PRESENT ILLNESS: Mr. Price is a very pleasant 69-year-old gentleman with no medical problems, who presented to the emergency room on 10/25 with a 2- week history of abdominal pain and worsening right upper quadrant abdominal pain and constipation. He was seen at the [facility]. A CT scan was done, which showed an ascending colon mass with diffuse abdominal adenopathy. There was floyd hepatis. Right upper quadrant ultrasound showed multiple hepatic lesions. He was sent over to this facility for admission and further workup. GI was consulted and performed a colonoscopy. There was a large mid ascending colon mass, measuring 7 to 8 cm in length, and occupying 85% to 90% of the colon lumen. He had several polyps removed. The patient has never had a colonoscopy. He denied any melena or hematochezia. Denies weight loss. He was given medication for constipation and has had a bowel movement since arrival. He is taking clear liquids without any issues. Pathology is still pending from the colon mass. PAST MEDICAL HISTORY: Asthma. PAST SURGICAL HISTORY: Retinal repair. ALLERGIES: NO KNOWN DRUG ALLERGIES. HOME MEDICATIONS: None. FAMILY HISTORY: His father had colon cancer at the age of 88. Mom had lymphoma at 86 years old. SOCIAL HISTORY: No tobacco or drug use. He drinks occasional beer. No children. Lives with his spouse. REVIEW OF SYSTEMS: A 10-point review of systems is negative except for noted in HPI. PHYSICAL EXAMINATION: VITAL SIGNS: Temperature is 97.9, pulse is 63, respiratory rate 16, BP is 128/ 75, and he is 95% on room air. GENERAL: This is a well-developed, well-nourished male, in no acute distress. HEENT: Normocephalic and atraumatic. Pupils are equal and reactive to light. NECK: Supple. CV: Regular rate and rhythm. LUNGS: Clear. ABDOMEN: Slightly distended. He is tender in the right upper quadrant. Bowel sounds are positive. EXTREMITIES: No clubbing or cyanosis. SKIN: No rash. HEMATOLOGIC: No petechiae or purpura. NEUROLOGIC: Nonfocal. PERTINENT LABORATORY DATA AND X-RAYS: Current WBCs 8.5, hemoglobin 15.6, hematocrit 46.7, platelet count is 264,000. He has 66% neutrophils and 15% lymphocytes. Sodium 136, potassium 4.3, chloride 104, CO2 is 25, BUN is 12, creatinine 0.86, and calcium 8.9. Bilirubin 1.6, AST is 26, ALT is 45, alkaline phosphatase is 158, serum total protein is 6.7, albumin 3.9, globulin . CEA is 5.64. Radiology per HPI. ASSESSMENT: Stage IV metastatic colon cancer. DISCUSSION: Await final pathology results. However, this is likely adenocarcinoma of the colon. We discussed typical treatment including FOLFOX with/without Avastin. He is getting a MediPort tomorrow. He will follow up in our clinic on next Tuesday with Dr. Holman to discuss treatment plan and start chemo shortly thereafter. Case has also been discussed with Dr. Robison and Dr. Holman.. Thank you for the consult. We will be happy to take care of this pleasant gentleman. Job ID: [id number] MTDD
[2019-10-29] MEDS ORDERED: Polyethylene Glycol 3350 17 GM Packet PO PRN (22:16)
[2019-10-29] MEDS ORDERED: Morphine 2 MG/ML SYRINGE SLOW IVP PRN (22:18)
[2019-10-30 05:53] LABS: ALT (SGPT) 150 U/L (8-55); AST (SGOT) 136 U/L (5-34); Albumin 3.9 g/dL (3.4-4.8); Alkaline Phosphatase 198 U/L (40-110); Anion Gap 12 mmol/L (10-20); BUN (Urea Nitrogen) 14 mg/dL (8.4-25.7); Bilirubin, Total 1.4 mg/dL (0.2-1.2); Calc. Creatinine Clearance 114 mL/min (70-130); Calcium 8.9 mg/dL (7.8-10.44); Carbon Dioxide 24 mmol/L (23-31); Chloride 105 mmol/L (98-107); Estimated GFR-MDRD 85; Globulin 2.8 g/dL (2.4-3.5); Glucose 109 mg/dL (80-115); Protein, Total 6.7 g/dL (5.8-8.1); Sodium 137 mmol/L (136-145)
--- NOTE | 2019-10-30 06:28 | PDOC.FM ---
- Subjective Subjective: Patient has no complaints this morning. States he has had some minimal bowel movements, mostly liquids. No large BM but states he has only had chicken broth to eat since admission. Continues to have a red patch on his neck, appeared yesterday but no increase in size. Is awaiting mediport placement this morning. Was able to visit with Oncology S[employer]IOR [employer] DES[employer] yesterday, getting set up with appointment on November [address] Holman to discuss starting chemotherapy. - Objective MAR Reviewed: Yes Vital Signs & Weight: Vital Signs (12 hours) Temp Pulse Resp BP Pulse Ox 10/30/19 00:00 98.2 F 60 20 100/67 96 10/29/19 20:00 98.1 F 74 20 149/86 H 96 Weight Admit Weight 102.965 kg Weight 102.965 kg I&O: 10/28/19 10/29/19 10/30/19 06:59 06:59 06:59 Intake Total 730 2060 Balance 730 2060 Result Diagrams: 10/27/19 06:30 10/30/19 05:09 Phys Exam - Physical Examination Constitutional: NAD HEENT: moist MMs, sclera anicteric Neck: no JVD, supple, full ROM Respiratory: no wheezing, no rhonchi, clear to auscultation bilateral Cardiovascular: RRR, no significant murmur Gastrointestinal: soft, no distention, positive bowel sounds Musculoskeletal: no edema, pulses present Neurological: normal sensation, moves all 4 limbs Psychiatric: normal affect, A&O x 3 Skin: normal turgor Deviation from normal: red round patch approx. 1 cm diameter with central clearing on right neck Dx/Plan (1) Asthma Code(s): J45.909 - UNSPECIFIED ASTHMA, UNCOMPLICATED Status: Resolved Qualifiers: Asthma severity: mild Asthma persistence: unspecified (2) Colorectal cancer, stage IV Code(s): C19 - MALIGNANT NEOPLASM OF RECTOSIGMOID JUNCTION Status: Acute (3) Elevated alkaline phosphatase level Code(s): R74.8 - ABNORMAL LEVELS OF OTHER SERUM ENZYMES Status: Acute (4) Elevated serum GGT level Code(s): R74.8 - ABNORMAL LEVELS OF OTHER SERUM ENZYMES Status: Acute (5) Metastasis Code(s): C79.9 - SECONDARY MALIGNANT NEOPLASM OF UNSPECIFIED SITE Status: Acute Qualifiers: Area of secondary neoplastic involvement: digestive structure Digestive structure secondary neoplasm location: metastatic to liver Qualified Code(s): C78.7 - Secondary malignant neoplasm of liver and intrahepatic bile duct - Plan Plan: Pt is a 69yo M with no PMH presenting as a direct admission from [facility] for cc of abd pain in RUQ and constipation, with findings of metastatic cancer on imaging. #CRC, Stage IV Abd pain for 2 wks * No colonoscopy in past * [facility] colon cancer in 80s in father * US: Multiple hypoechoic hepatic lesions, gallbladder polyp, Fatty infection of the liver and hepatomegaly * CT Abd: Moderate wall thickening of the ascending colon, pericolonic mesenteric fat infiltation of cecum, LAD of the floyd hepatis, 3.7 x 3.8 ascending colon mass. * CT Chest: Right middle lobe lateral LAD, hepatic mets with LAD, subQ cyst with R latissmus dorsi- sebaceous vs met * Recommend repeat in 4-6 wks * GI consulted, appreciate recs. * Repeat Colonoscopy in 1 year after resection performed * Colonoscopy 10/26: 7-8 cm mass in Ascending colon and 4 polyps removed * pathology pending * CEA: 5.64- Elevated * General Surgery consulted--Dr. Robison, appreciate recs. * will consult Oncology, start chemo initially prior to surgery * will place mediport today * Oncology consulted--Dr. Galindo, appreciate recs * [facility] Holman on 11/06/2019 to discuss starting chemotherapy #Tinea Corporis -patch on right neck -start topical antifungal therapy #Transaminitis/Elevated Alk Phos & GGT- Worsening ALT: 79 > 50> 136, AST: 57 > 26 > 150, Alk Phos: 148 > 153> 198, GGT: 274 * Daily CMPs #Abdominal pain RUQ with radiation to RLQ * Improved with liquid diet Code Status: Full Diet: NPO pending Surgical eval Activity: Ad Ching IVF: SL DVT PPx: Lovenox PCP: CC Dispo: Stable, admitted to Medical inpt for further workup of mass with colon & liver mets. Await pathology results taken during colonoscopy. Surgery and Oncology both consulted, appreciate recommendations. Plan for mediport placement today. Anticipate discharge home tomorrow. Addendum - Attending - Attending Attestation Date/Time: 10/30/19 5331 I personally evaluated the patient and discussed the management with [] I agree with the History, Examination, Assessment and Plan documented above with any addition or exceptions noted below. mediport placement today. Can likely d/c after that. Will send home on tramadol for pain. Continue bowel regimen. F/U TAMP this week for repeat LFTs. Slight elevation 2/2 mets. Has f/u arranged with onc next week. VP PROJECT reviewed.
[2019-10-30] MEDS: Enoxaparin Sodium 40 MG/0.4 ML SYRINGE SC SCH (07:41)
[2019-10-30] MEDS ORDERED: traMADol HCl 50 MG TAB PO PRN ×3 (08:11→13:48)
[2019-10-30] MEDS ORDERED: Morphine 2 MG/ML SYRINGE SLOW IVP PRN (08:12)
[2019-10-30] MEDS ORDERED: Propofol 500 MG/50 ML VIAL ONE (12:10)
[2019-10-30] MEDS ORDERED: Midazolam HCl 2 mg/2 ml Vial ONE (12:10)
[2019-10-30] MEDS ORDERED: Fentanyl 100 MCG/2 ML VIAL ONE (12:10)
[2019-10-30] MEDS ORDERED: Lidocaine 1% w/Epinephrine 1:100K 20 ML VIAL ONE (12:13)
[2019-10-30] MEDS ORDERED: Bupivacaine 0.25% HCL 30 ML VIAL ONE (12:13)
[2019-10-30 14:14] VITALS: BP 134/72; TEMP 97.8
--- NOTE | 2019-10-30 14:29 | PDOC.MOPN ---
Interval History: back from [facility]. denies pain, eating crackers - Vital Signs Vital Signs: Vital Signs (12 hours) Temp Pulse Resp BP BP Pulse Ox 10/30/19 14:14 97.8 F 61 16 134/72 94 L 10/30/19 09:54 98.0 F 56 L 16 137/79 98 10/30/19 07:30 97.9 F 67 20 139/80 96 Weight Admit Weight 227 lb Weight 227 lb - Physical Exam General: Alert, Oriented x3, No acute distress HEENT: Atraumatic, PERRLA, EOMI, Mucous membr. moist/pink Lungs: Clear to auscultation, Normal air movement Cardiovascular: Regular rate, Normal S1, Normal S2, No murmurs, Gallops, Rubs Abdomen: Normal bowel sounds, Soft, No tenderness, No hepatospenomegaly, No masses Extremities: No clubbing, No cyanosis, No edema, Normal pulses, No tenderness/ swelling Skin: No rashes, No breakdown, No significant lesion Neurological: Normal gait, Normal speech, Strength at 5/5 X4 ext, Normal tone, Sensation intact, Cranial nerves 3-12 NL, Reflexes 2+ - Labs Result Diagrams: 10/27/19 06:30 10/30/19 05:09 Lab results: Laboratory Results - last 24 hr 10/30/19 05:09: Sodium 137, Potassium 4.0, Chloride 105, Carbon Dioxide 24, Anion Gap 12, BUN 14, Creatinine 0.89, Estimated GFR (MDRD) 85, Glucose 109, Calcium 8.9, Total Bilirubin 1.4 H, AST 136 H, ALT 150 H, Alkaline Phosphatase 198 H, Serum Total Protein 6.7, Albumin 3.9, Globulin 2.8, Albumin/Globulin Ratio 1.4 Status: lab reviewed by me A/P - Problem (1) Adenocarcinoma, colon Current Visit: Yes Code(s): C18.9 - MALIGNANT NEOPLASM OF COLON, UNSPECIFIED Status: Acute - Plan Plan: 1. Path confirmed adenocarcinoma 2. mediport in today 3. home when ok with Dr. Robison 4. follow-up Dr. Holman last week.
--- NOTE | 2019-10-30 17:17 | OP ---
DATE OF PROCEDURE: 10/30/2019 PREOPERATIVE DIAGNOSIS: Colon cancer, metastatic to liver. POSTOPERATIVE DIAGNOSIS: Colon cancer, metastatic to liver. PROCEDURE PERFORMED: Tunneled central line with subcutaneous port (MediPort CT injectable). ANESTHESIA: General. ESTIMATED BLOOD LOSS: Minimal. COMPLICATIONS: None. FINDINGS: Tip of the catheter is at atriocaval junction. DESCRIPTION OF PROCEDURE: The patient was taken to the operating room and laid supine on the operating room table. After general anesthetic was obtained, bilateral neck and chest were shaved, prepped, and draped in a sterile fashion. Local anesthetic was infiltrated over the right internal jugular vein. Internal jugular vein was cannulated using a 22-gauge Finder needle followed by a Seldinger needle. Wire was passed into the superior vena cava under fluoro guidance. A separate incision was made below the right collarbone below the right clavicle and a subcutaneous pocket made below the lower incision, tubing for the MediPort tunneled from the inferior to superior incision and suture sheath was placed over the wire into the superior vena cava under fluoro guidance. The dilator and wire were removed. The end of the catheter was sewn into the sheath. The sheath was peeled away. The tip of the catheter was at the atriocaval junction. The MediPort tubing was cut to fit the MediPort at the lower incision, connected to the MediPort, which was sewn to the chest wall in the subcutaneous pocket using Prolene. MediPort flushes and draws blood without difficulty, was flushed with a heparin flush. All incisions were irrigated and closed using 3-0 Vicryl, 4-0 Monocryl, and Dermabond. The patient was sent to Recovery in stable condition. All instrument counts, needle counts, and lap counts were correct. Job ID: [id number]
--- NOTE | 2019-10-30 22:44 | DIS ---
DATE OF ADMISSION: 10/26/2019 DATE OF DISCHARGE: 10/30/2019 RESIDENT: Namrata Lopez DO ADMITTING ATTENDING: Jonah Vigil DO DISCHARGE ATTENDING: Fabián Flores MD CONSULTS: 1. GI, Juvenal Jay MD. 2. General Surgery, Dannie Robison MD. 3. Oncology, Laly Galindo MD. PROCEDURES: 1. Chest CT on October 26, 2019: Small peripheral subpleural triangular opacities within the lateral right middle lobe, most suspicious for small intrapulmonary lymph nodes. Metastatic disease is felt to be less likely. As a conservative measure, a followup CT of the thorax in 4 to 6 weeks is recommended to document stability. Hepatic metastatic disease with extensive upper abdominal lymphadenopathy. Subcutaneous hypodense cystic lesion involving the skin surface of the right upper torso adjacent to the right latissimus dorsi, may reflect a prominent sebaceous cyst. Recommend correlation with clinical exam. Malignant skin lesion cannot be entirely excluded. The largest hepatic lesion seen measures 4 cm. There was initially additional 4.3 cm lesion within the peripheral right hepatic lobe tip. There was extensive adenopathy within the portacaval and periportal region. 2. Colonoscopy on October 27, 2019: Large mid ascending colonic mass measuring 7 to 8 cm in length and occupying 85% to 90% of the colonic lumen was encountered, now status post biopsies and tattoo placement. A 2 to 3 mm transverse colon polyp was completely removed with biopsy forceps. Two descending colon polyps measuring 4 to 6 mm in size were status post snare cautery polypectomy. A 2 to 3 cm rectal polyp was removed with biopsy forceps. Internal and external hemorrhoids present. 3. Tunneled central line with subcutaneous port, MediPort CT injectable placed on October 30, [address] Robison. The patient tolerated procedure well. PRIMARY DIAGNOSIS: Colorectal cancer stage IV with metastases to the liver and potentially other sites as mentioned above. SECONDARY DIAGNOSES: 1. Tinea corporis of right lateral neck. 2. Transaminitis. 3. Abdominal pain. DISCHARGE MEDICATIONS: 1. Acetaminophen 650 mg p.o. q.4 hours p.r.n. 2. MiraLAX 17 g p.o. daily p.r.n. 3. Senokot two tablets p.o. b.i.d. 4. Clotrimazole 1% cream 1 g topical b.i.d. for 14 days. 5. Tramadol 50 mg p.o. q.4 hours p.r.n. DISCONTINUED MEDICATIONS: None. HISTORY OF PRESENT ILLNESS/HOSPITAL COURSE: The patient is a 69-year-old male with no significant past medical history, who presented to the [facility] as a direct admission from [facility] with a chief complaint of abdominal pain in the right upper quadrant and constipation. He was found on imaging at the urgent care site to have findings of metastatic disease. Symptoms have been present for about two weeks. The patient has tried Dulcolax at home with only mild improvement. His abdominal pain has continued and worsens with eating and movement. Pain improves with sitting still. The pain is described as sharp and stabbing, varying from a 3/10 to a 10/10 at its worst. The patient denies diarrhea, nausea, vomiting, hematochezia, and melena. He has never had a colonoscopy before. He currently has no PCP. At the [facility], an ultrasound was performed, which showed spots on his liver. He had a CT abdomen at that facility, which showed findings suggestive of a mass in the ascending colon with metastatic lesions in the liver and LAD and the floyd hepatis. Lab work revealed an AST of 57, ALT 79, alkaline phosphatase 148, and GGT 274. Upon arrival to the floor, the patient was admitted to the medical floor for further workup of ascending colon mass with liver metastases. GI, Dr. Jay, was consulted, who arranged to have a colonoscopy completed the following day. The patient was placed on a bowel regimen with GoLYTELY and Senokot to induce bowel movements. He was additionally placed on a clear liquid diet. Later on, MiraLAX was added for additional support. The patient reported having light bowel movements; however, he was only eating chicken broth for the duration of his stay. The patient's colonoscopy revealed a 7 to 8 cm long mass in the ascending colon. Biopsies were taken with pathology reports eventually revealing an invasive adenocarcinoma. Dr. Galindo with Oncology was consulted as well as Dr. Robison with General Surgery. After discussion with the physician team, it was determined that a hemicolectomy could be deferred at this time and that chemotherapy could be initiated first. At this point, it was determined that the patient needed a MediPort placement scheduled, this was accomplished on October 30, [address] Galindo and his [employer]SEMBLER Elana Caballero discussed options with the patient as far as chemotherapy and he is in agreement with the plan. He is scheduled to see Dr. Holman with Oncology on November 06, 2019 to initiate chemotherapy. On the morning of October 30, 2019, the patient was noted to have a round patch with central clearing suggestive of tinea corporis on his right lateral neck. Because he was being discharged that day, a prescription was sent directly to the pharmacy for clotrimazole cream and the patient was instructed on its use. The patient was also given a prescription for tramadol for additional pain control, this had controlled his pain during his hospital stay. DISPOSITION: Stable. DISCHARGE INSTRUCTIONS: 1. Location: Home. 2. Diet: Soft solids and liquids, adjust to have at least one bowel movement per day. 3. Activity: As tolerated. 4. Follow up with Dr. Holman on November 06, 2019 at 1:45 p.m. 5. Follow up with Dr. Robison, General Surgery on November 05, 2019 at 9 a.m. 6. Follow up with Dr. Juvenal Jay, GI as needed. 7. Follow up with primary care provider at [facility] in 3 to 5 days to establish PCP care and for hospital followup. Job ID: [id number]
== END 2019-10-30 15:46 | disposition home or self-care (01) | DRG 982 ==
LOC: T4-B 13:17
PROVIDERS: ADMIT Student in an Organized Health Care Education/Training Program; ATTEND Student in an Organized Health Care Education/Training Program
PROC: 3E02340 Introduction of Influenza Vaccine into Muscle, Percutaneous Approach (ICD-10-PCS; 2019-10-26)
PROC: 0DBK8ZX Excision of Ascending Colon, Via Natural or Artificial Opening Endoscopic, Diagnostic (ICD-10-PCS; principal; 2019-10-27)
PROC: 0DBM8ZZ Excision of Descending Colon, Via Natural or Artificial Opening Endoscopic (ICD-10-PCS; 2019-10-27)
PROC: 0DBL8ZX Excision of Transverse Colon, Via Natural or Artificial Opening Endoscopic, Diagnostic (ICD-10-PCS; 2019-10-27)
PROC: 0DBP8ZX Excision of Rectum, Via Natural or Artificial Opening Endoscopic, Diagnostic (ICD-10-PCS; 2019-10-27)
PROC: 0JH60WZ Insertion of Totally Implantable Vascular Access Device into Chest Subcutaneous Tissue and Fascia, Open Approach (ICD-10-PCS; 2019-10-30)
PROC: 02HV33Z Insertion of Infusion Device into Superior Vena Cava, Percutaneous Approach (ICD-10-PCS; 2019-10-30)
PROC: B5181ZA Fluoroscopy of Superior Vena Cava using Low Osmolar Contrast, Guidance (ICD-10-PCS; 2019-10-30)
DX: C18.9 Malignant neoplasm of colon, unspecified (principal); C78.7 Secondary malignant neoplasm of liver and intrahepatic bile duct; Z23 Encounter for immunization; J45.909 Unspecified asthma, uncomplicated; K64.8 Other hemorrhoids; K64.4 Residual hemorrhoidal skin tags; K63.5 Polyp of colon; K62.1 Rectal polyp; R74.8 Abnormal levels of other serum enzymes; B35.4 Tinea corporis
CPT/HCPCS: 36415; 71260; 80053; 82378; 85025; 88305; C1788; J1642; J2250; J2704; J3010; Q9967; S0020

== ENCOUNTER 2020-02-01 08:01 | Outpatient (CLI) | payer BC, MEDICARE ==
--- NOTE | 2020-02-01 10:17 | CT ---
CT CHEST AND ABDOMEN AND PELVIS WITH IV CONTRAST: HISTORY: A 69-year-old male with malignant neoplasm of ascending colon. CH4 right-sided colon cancer. Exam r equested to evaluate response to treatment. COMPARISON: CT chest, abdomen, and pelvis dated 10/26/2019. FINDINGS: No mediastinal, hilar, or axillary mass or lymphadenopathy is seen. The few right peripheral lung no dules in the 3-5 mm range are stable. No pleural or pericardial effusions are seen. Multiple low-density lesions in the liver are stable, the largest are in the right lobe measuring 4 a nd 4.3 cm respectively. The spleen remains enlarged at 14.7 cm in AP dimension. The pancreas, adren al glands, and kidneys are normal. Periportal and mesenteric lymphadenopathy is stable measuring up to 4.5 cm and retroperitoneal lympha denopathy is stable measuring 15 mm in the left paraaortic region. Inflammatory changes in the peric ecal fat are again noted. No free air or free fluid is seen in the abdomen or pelvis. There are vascular calcifications withou t evidence of aneurysmal dilatation of the thoracoabdominal aorta. Multilevel degenerative change is seen in the thoracolumbar spine. No osteolytic or osteoblastic lesions are noted. The 2.1 cm subcu taneous hypodense lesion in the right latissimus dorsi and of the subcutaneous 2.1 cm hypodense lesio n posteriorly at L4-5 level are stable. A fat-containing right inguinal hernia is again noted. The small bowel loops are not abnormally dilated. IMPRESSION: Stable exam since 10/26/2019. POS: SINGH
[2020-02-01] MEDS ORDERED: Iopamidol-370 76% 500 ML 1 ML ONE (11:25)
== END 2020-02-01 08:02 | disposition home or self-care (01) ==
LOC: BICCT 08:01
PROVIDERS: ATTEND Internal Medicine Hematology & Oncology
DX: C18.2 Malignant neoplasm of ascending colon (principal); C78.7 Secondary malignant neoplasm of liver and intrahepatic bile duct; R91.8 Other nonspecific abnormal finding of lung field
CPT/HCPCS: 71260; 74177; Q9967

== ENCOUNTER 2020-04-18 15:45 | Emergency (ER) | payer BC, MEDICARE ==
--- NOTE | 2020-04-18 17:19 | RAD ---
Chest one view HISTORY: Right neck pain. COMPARISON: CT chest 02/01/2020. FINDINGS: Cardiac silhouette is magnified by projection. Pulmonary vasculature is unremarkable. Mediastinum is midline. Lungs remain slightly hyperinflated. Right internal jugular Port-A-Cath is unchanged in position from CT exam 02/01/2020, including the supe riorly directed loop. Tip of the catheter remains at the level of the right clavicular head, overlying the superior vena cava. IMPRESSION : Right internal jugular Port-A-Cath is unchanged in position. No radiographic evidence of complication .
--- NOTE | 2020-04-18 18:23 | ULT ---
Limited venous ultrasound of theright upper extremity: 04/18/2020 COMPARISON:None available HISTORY:In dwelling catheter, swelling, assess for DVT TECHNIQUE: Multiplanar grayscale sonographic imaging of right internal jugular vein obtained with Dop pler interrogation including color flow and spectral analysis. FINDINGS:The right internal jugular vein is expanded and filled with hypoechoic clot from the level o f the clavicle through the "midportion of the neck". This is consistent with occlusive deep venous thrombosis. Right subclavian vein appears patent. IMPRESSION:Occlusive clot within the right internal jugular vein. Results called to Dr. Reyez 6: 18 PM 04/18/2020
== END 2020-04-18 18:49 | disposition home or self-care (01) ==
LOC: ERS 15:45
DX: T82.868A Thrombosis due to vascular prosthetic devices, implants and grafts, initial encounter (principal); I82.C11 Acute embolism and thrombosis of right internal jugular vein; C18.9 Malignant neoplasm of colon, unspecified; J45.909 Unspecified asthma, uncomplicated; Z79.899 Other long term (current) drug therapy
CPT/HCPCS: 71045

== ENCOUNTER 2020-05-09 09:04 | Outpatient (CLI) | payer BC, MEDICARE ==
--- NOTE | 2020-05-09 11:08 | CT ---
CT neck soft tissues with contrast: 05/09/2020 HISTORY: 70-year-old male. ICD-10: J 38.00, vocal cord paralysis R 49.0, hoarseness Z 86.03, personal history of neoplasm of uncertain behavior. Metastatic colon cancer. At 11:02 AM 05/09/2020, Dr. Haas texted Dr. Martin regarding position of tip of implantable vascular a ccess port COMPARISON: None FINDINGS: Lung apices are clear of consolidation and neoplastic tumor. No apical rib or cervical spine destruct kena neoplastic osseous tumor. No significantly enlarged mediastinal lymphadenopathy or tumor mass at the aortopulmonic window, arou nd the brachiocephalic artery, or left subclavian artery. Atherosclerosis with calcified and noncalcified plaque at aortic arch, including focal noncalcified p laque and/or minimal chronic mural thrombus, at left lateral aspect of aortic arch measuring 8 mm in transverse dimension. This is unlikely to be a cause of the vocal cord paralysis. No cervical lymphadenopathy. No evidence of neoplasm or infection involving the carotid, parotid, submandibular, retropharyngeal, perivertebral, pharyngeal mucosal, visceral, posterior cervical, parapharyngeal, transportation superintendent, or sublingual, spaces. Unremarkable larynx and hypopharynx, except for distention of airway. No asymmetr y in position of left and right vocal cords. No thyromegaly. Trachea and judson are patent and clear. Bilateral tympanomastoid cavities, and maxillary sinuses, are grossly clear. Mild atherosclero sis of proximal bilateral internal carotids. Implantable vascular access port catheter ascends the superficial fat of the right anterolateral neck, then, at the level of the glottis, it pierces the ri ght sternocleidomastoid muscle, and descends along the right carotid space, and then its distal tip is at the junction between the right subclavian vein, and right brachiocephalic vein. It is uncertain whether or not the tip is intraluminal or extraluminal. IMPRESSION: 1.) Right-sided implantable vascular access port position as described above. Uncertain whether its t ip is intraluminal or extraluminal at the junction between right brachiocephalic and right subclavian veins. 2) no cause of patient's hoarseness and vocal cord paralysis identified.
--- NOTE | 2020-05-09 11:24 | CT ---
CT Chest Abd Pelvis W Con History: Colon cancer Comparison: CT February 01, 2020 Findings: No new suspicious pulmonary nodule. Small peripheral triangular-shaped nodules right middle lobe are unchanged. No pneumothorax. No effusion. No pulmonary consolidation. Small peripheral nodule posterior segment l eft upper lobe is similar. No mediastinal adenopathy. No axillary or internal mammary adenopathy. No pericardial effusion. The hepatic hypodensities from the September 2019 examination does not have significant growth with the lar gest index lesion measuring 4 cm in transverse axial images 65, unchanged. No new hepatic hypodensities. There is, however, new intrahepatic biliary dilatation, mild-moderate, likely sequelae of obstructive floyd hepatis adenopathy/scar. Using the same plane of reference from the January 2020 examination, the greatest AP dimension of the periduodenal lymph node cluster measures 3.4 cm in AP dimension, previously 4.5 cm. The portal vein is patent. Left retroperitoneal periaortic lymph node axial image 71 measures 14-15 mm in short axis, unchanged. Decreased wall thickening and irregularity of the ascending colon. Splenic size is similar. No acute osseous abnormality. Sternum and manubrium are intact. Clavicles ar e intact. No acute displaced rib fracture. The round hypodensities along the right latissimus and midline lower paraspinal soft tissues are unchanged in size and appearance. Impression: 1. New mild intrahepatic biliary dilatation likely sequelae of scarring of the common bile duct due t o its close approximation with the partial treatment responding floyd hepatis adenopathy. The largest right paraduodenal confluence of lymph nodes measures up to 3.5 cm in AP dimension, previousl y 4.5 cm. ERCP with common bile duct stent placement may be beneficial. 2. Hepatic hypodensities are completely unchanged dating back to the September exam without growth or enlar gement. 3. Mesenteric adenopathy these is slightly decreased in size with index lymph node measuring 11 mm in short axis axial image 74, previously 17 mm in September 2019 and 14 mm January 2020. 4. Decreased wall thickening of the ascending colon.
[2020-05-09] MEDS ORDERED: Iopamidol-370 76% 500 ML 1 ML ONE (13:18)
== END 2020-05-09 09:05 | disposition home or self-care (01) ==
LOC: BICCT 09:04
PROVIDERS: ATTEND Otolaryngology Plastic Surgery within the Head & Neck
DX: J38.00 Paralysis of vocal cords and larynx, unspecified (principal); R49.0 Dysphonia; R60.0 Localized edema; K63.89 Other specified diseases of intestine; K83.8 Other specified diseases of biliary tract; Z86.03 Personal history of neoplasm of uncertain behavior
CPT/HCPCS: 70491; 71260; 74177; Q9967

== ENCOUNTER 2020-08-05 13:18 | Outpatient (CLI) | payer BC, MEDICARE ==
[2020-08-06 02:20] LABS: SARS-CoV-2 PCR by NAA Not Detected (NotDetected)
== END 2020-08-05 13:19 | disposition home or self-care (01) ==
LOC: LABBT 13:18
PROVIDERS: ATTEND Internal Medicine
DX: C18.2 Malignant neoplasm of ascending colon (principal); K71.0 Toxic liver disease with cholestasis; Z20.822 Contact with and (suspected) exposure to COVID-19
CPT/HCPCS: 87635; U0003; U0005

== ENCOUNTER 2020-08-08 10:52 | Day surgery (SDC) | payer BC, MEDICARE ==
[2020-08-06 12:48] VITALS: BMI 24.3
[2020-08-08] MEDS ORDERED: Iothalamate Meglumine 60% 50 ML VIAL FS ONE (12:15)
[2020-08-08] MEDS ORDERED: Indomethacin 50 MG SUPP ONE (12:16)
[2020-08-08] MEDS ORDERED: Fentanyl 100 MCG/2 ML VIAL ONE (12:39)
[2020-08-08] MEDS ORDERED: SUGAMMADEX SODIUM 200 MG/2 ML VIAL ONE (12:39)
[2020-08-08] MEDS ORDERED: Sodium Chloride 0.9% 100 ML ONE (12:46)
[2020-08-08] MEDS ORDERED: Piperacillin/Tazobactam 3.375 GM VIAL ONE (12:46)
[2020-08-08] MEDS ORDERED: Dexamethasone 20 MG/5 ML VIAL ONE (12:58)
[2020-08-08] MEDS ORDERED: Ondansetron PF 4 MG/2 ML Vial ONE (12:58)
[2020-08-08] MEDS ORDERED: PROPOFOL 200 MG/20 ML VIAL ONE (12:58)
[2020-08-08] MEDS ORDERED: Rocuronium Bromide 10 MG/ML (10ML VIAL) ONE (12:58)
[2020-08-08] MEDS ORDERED: Lidocaine 1% PF 5 ML VIAL ONE (12:58)
[2020-08-08] MEDS ORDERED: Ondansetron HCl/PF 4 MG/2 ML Vial IVP PRN (14:52)
[2020-08-08] MEDS ORDERED: Promethazine HCl 25 MG/ML VIAL IM PRN (14:52)
[2020-08-08] MEDS ORDERED: Promethazine HCl 25 MG/ML VIAL SLOW IVP PRN (14:52)
== END 2020-08-08 16:20 | disposition home or self-care (01) ==
LOC: SDC 10:52
PROVIDERS: ATTEND Internal Medicine
PROC: 0FPB8DZ Removal of Intraluminal Device from Hepatobiliary Duct, Via Natural or Artificial Opening Endoscopic (ICD-10-PCS; principal; 2020-08-08)
DX: C18.2 Malignant neoplasm of ascending colon (principal); C78.7 Secondary malignant neoplasm of liver and intrahepatic bile duct; K83.1 Obstruction of bile duct; Z79.01 Long term (current) use of anticoagulants; Z79.899 Other long term (current) drug therapy
CPT/HCPCS: 74330; J1100; J2405; J2543; J2704; J3010; J3490

== ENCOUNTER 2020-08-15 16:43 | Outpatient (CLI) | payer BC, MEDICARE ==
[2020-08-16 03:55] LABS: SARS-CoV-2 PCR by NAA Not Detected (NotDetected)
== END 2020-08-15 16:44 | disposition home or self-care (01) ==
LOC: LABBT 16:43
PROVIDERS: ATTEND Internal Medicine Gastroenterology
DX: Z20.822 Contact with and (suspected) exposure to COVID-19 (principal)
CPT/HCPCS: 87635; U0003; U0005

== ENCOUNTER 2020-09-08 09:28 | Outpatient (CLI) | payer BC, MEDICARE ==
[2020-09-08] MEDS ORDERED: Iopamidol 370 76% 100 ML VIAL ONE (14:32)
== END 2020-09-08 09:29 | disposition home or self-care (01) ==
LOC: BICCT 09:28
PROVIDERS: ATTEND Internal Medicine Gastroenterology
DX: C18.9 Malignant neoplasm of colon, unspecified (principal); R93.3 Abnormal findings on diagnostic imaging of other parts of digestive tract; K83.1 Obstruction of bile duct
CPT/HCPCS: 74170; Q9967